=== PATIENT | female | born 1985 | race Caucasian/White ===

== ENCOUNTER 2017-08-07 17:34 | Outpatient (CLI) | payer BC ==
[~2017-08-07] VITALS: Ht 163.8 cm; Wt 93.6 kg
[~2017-08-07 17:34] MED LIST: IBUP-1222 PO
[2017-08-07 18:14] LABS: HEMATOCRIT 34.2 % (34.6-47.8); HEMOGLOBIN 11.6 g/dL (11.7-16.4); WHITE BLOOD COUNT 7.4 x10^3/uL (3.4-10)
[2017-08-07 18:24] LABS: BLOOD UREA NITROGEN 10 mg/dL (7-18)
[2017-08-07 18:27] LABS: ASPARTATE AMINO TRANSFERASE 16 U/L (15-37)
== END 2017-08-07 19:30 | disposition home or self-care (01) ==
LOC: LDOP 17:34
PROVIDERS: ATTEND Obstetrics & Gynecology
DX: O30.043 Twin pregnancy, dichorionic/diamniotic, third trimester (principal); O13.3 Gestational [pregnancy-induced] hypertension without significant proteinuria, third trimester; Z3A.00 Weeks of gestation of pregnancy not specified
CPT/HCPCS: 36415; 59025; 80053; 81001; 81050; 82570; 84156; 84550; 85025; 99211; G0463

== ENCOUNTER 2017-08-17 10:07 | Inpatient (IN) | payer BC ==
[~2017-08-17] VITALS: Ht 162.6 cm; Wt 94.5 kg
[2017-08-17] MEDS ORDERED: OXYTOCIN 30U/ 0.9% NaCL 500ML 500 ML IV PRN (10:29)
[2017-08-17] MEDS ORDERED: D5%-LACTATED RINGERS 1,000 ML IV SCH (10:29)
[2017-08-17] MEDS ORDERED: OXYTOCIN 30U/ 0.9% NaCL 500ML 500 ML IV ONE (10:29)
[2017-08-17] MEDS ORDERED: FENTANYL PF 100 MCG/2ML IVPush PRN (10:30)
[2017-08-17] MEDS ORDERED: ONDANSETRON 2MG/ML, 2ML IVPush PRN (10:30)
[2017-08-17] MEDS ORDERED: FENTANYL PF 100 MCG/2ML IV PRN (10:30)
[2017-08-17] MEDS ORDERED: TERBUTALINE 1 MG/ML, 1ML IVPush PRN (10:30)
[2017-08-17] MEDS: LACTATED RINGERS 1,000 ML IV SCH ×3 (10:55→13:58)
[2017-08-17] MEDS ORDERED: OXYTOCIN 30U/ 0.9% NaCL 500ML 500 ML ONE (10:57)
[2017-08-17] MEDS ORDERED: NEWBORN KIT ONE (10:57)
[2017-08-17 11:00] LABS: HEMATOCRIT 33.5 % (34.6-47.8); HEMOGLOBIN 11.2 g/dL (11.7-16.4); WHITE BLOOD COUNT 6.7 x10^3/uL (3.4-10)
[2017-08-17] MEDS ORDERED: PREN1TAB60 PO (11:24)
[2017-08-17 11:28] VITALS: BP 129/76
[2017-08-17] MEDS ORDERED: BUPIVACAINE 0.25% ONE ×2 (12:40→12:43)
[2017-08-17] MEDS ORDERED: FENTANYL PF 100 MCG/2ML ONE (12:40)
[2017-08-17] MEDS ORDERED: FENTANYL/BUPIV./NS/PF 250 ML EPIDCONT ONE ×2 (12:41→12:43)
[2017-08-17] MEDS ORDERED: EPHEDRINE 50 MG/ML, 1ML ONE (12:43)
[2017-08-17] MEDS ORDERED: LIDOCAINE/PF 1.5%-EPI 1:200K, 30ML ONE (12:43)
[2017-08-17] MEDS ORDERED: ONDANSETRON 2MG/ML, 2ML ONE (12:43)
[2017-08-17] MEDS ORDERED: ACETAMINOPHEN 325 MG TABLET ONE (14:07)
[2017-08-17] MEDS: ACETAMINOPHEN 325 MG TABLET PO PRN (14:12)
[2017-08-17] MEDS: OXYTOCIN 30U/ 0.9% NaCL 500ML 500 ML IV SCH (20:20)
[2017-08-17] MEDS ORDERED: DOCUSATE 100 MG CAPSULE PO PRN (20:30)
[2017-08-17] MEDS ORDERED: OXYcodone/APAP 5/325MG TABLET PO PRN ×2 (20:30)
[2017-08-17] MEDS ORDERED: MISOPROSTOL 200 MCG TABLET PO PRN (20:30)
[2017-08-17] MEDS ORDERED: METHYLERGONOVINE 0.2 MG/ML IM PRN (20:30)
[2017-08-17] MEDS ORDERED: ONDANSETRON 2MG/ML, 2ML IV PRN (20:30)
[2017-08-17] MEDS ORDERED: IBUPROFEN 600 MG TABLET PO PRN (20:30)
[2017-08-17] MEDS ORDERED: CALCIUM CARBONATE 500 MG TAB.CHEW PO PRN (20:30)
[2017-08-17 21:40] VITALS: BP 104/71
[2017-08-18] MEDS: ACETAMINOPHEN 325 MG TABLET PO PRN (01:21)
[2017-08-18 01:30] VITALS: BP 106/70
[2017-08-18 03:17] LABS: HEMATOCRIT 29.4 % (34.6-47.8); WHITE BLOOD COUNT 8.6 x10^3/uL (3.4-10)
[2017-08-18] MEDS: OXYTOCIN 30U/ 0.9% NaCL 500ML 500 ML IV SCH (06:20)
[2017-08-18] MEDS ORDERED: PRENATAL VIT/IRON/FA 1 EACH TABLET ONE (07:09)
[2017-08-18 07:20] VITALS: BP 113/77
[2017-08-18] MEDS ORDERED: PRENATAL VIT/IRON/FA 1 EACH TABLET PO SCH (09:00)
[2017-08-18 12:33] VITALS: BP 121/84
[2017-08-18] MEDS ORDERED: IBUP-1222 PO (14:13)
== END 2017-08-18 15:35 | disposition home or self-care (01) | DRG 775 ==
LOC: LDIP 10:07 → 2NW 21:25
PROVIDERS: ADMIT Obstetrics & Gynecology; ATTEND Obstetrics & Gynecology
PROC: 10E0XZZ Delivery of Products of Conception, External Approach (ICD-10-PCS; principal; 2017-08-17)
PROC: 3E0R3BZ Introduction of Anesthetic Agent into Spinal Canal, Percutaneous Approach (ICD-10-PCS; 2017-08-17)
PROC: 00HU33Z Insertion of Infusion Device into Spinal Canal, Percutaneous Approach (ICD-10-PCS; 2017-08-17)
PROC: 10907ZC Drainage of Amniotic Fluid, Therapeutic from Products of Conception, Via Natural or Artificial Opening (ICD-10-PCS; 2017-08-17)
PROC: 0HQ9XZZ Repair Perineum Skin, External Approach (ICD-10-PCS; 2017-08-17)
DX: O13.4 Gestational [pregnancy-induced] hypertension without significant proteinuria, complicating childbirth (principal); O70.0 First degree perineal laceration during delivery; Z37.0 Single live birth; Z3A.39 39 weeks gestation of pregnancy
CPT/HCPCS: 36415; 85025; 86850; 86900; J2405; J3490; J2590; J3010; J7120